=== PATIENT | male | born 1955 | race Caucasian/White ===

== ENCOUNTER 2021-07-02 14:59 | Emergency (ER) | payer OTHER, SELFPAY ==
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
[2021-07-02 15:19] VITALS: BP 154/71; PULSE 74; RESP 16; TEMP 36.6; O2SAT 98; BMI 28.7
[2021-07-02] MEDS: Acetaminophen 325 MG TABLET 975 MG PO (16:19)
[2021-07-02 16:49] VITALS: BP 145/81; PULSE 74; RESP 18; O2SAT 98
--- NOTE | 2021-07-02 17:10 | ED_ITS ---
HPI - Head Injury General Chief complaint: Head Injury Stated complaint: fell at hit the back of head Time Seen by Provider: 07/02/21 15:23 Source: patient and family Mode of arrival: ambulatory Limitations: no limitations History of Present Illness HPI Narrative: 66-year-old male with a history of high cholesterol here with reports of headache after a slip and fall 1 hour prior to arrival. Patient tells me he s lipped on this ice falling backwards hitting his head. There was no loss of consciousness. He reports a headache and some neck discomfort. He denies any vision changes, vomiting, dizziness, numbness, tingling, chest pain, abdominal pain or back pain. He is not on anticoagulation. Related Data Allergies Allergy/AdvReac Type Severity Reaction Status Date / Time celecoxib [From Celebrex] Allergy Mild HIVES Unverified 01/29/20 15:16 celebrex Allergy Unknown hives, Uncoded 01/23/18 00:00 oral swelling, throat tightness Review of Systems Review of Systems: Yes all other systems are reviewed and are negative Constitutional: Constitutional: Reports no additional constitutional complaints, Denies body ache(s), Denies chills, Denies fever(s), Reports headache(s) and Denies weakness Eyes: Eyes: Reports no additional eye complaints and Denies change in vision ENT: Reports system reviewed and no additional complaints, except as documented, Denies dizziness, Reports headache(s), Denies nasal congestion, Denies nasal discharge and Reports neck pain Cardiovascular: Cardiovascular: Reports no additional cardiovascular complaints, Denies chest pain, Denies leg edema and Denies dyspnea Respiratory: Respiratory: Reports no additional respiratory complaints, Denies cough and Denies dyspnea Gastrointestinal: Gastrointestinal: Reports no additional gastrointestinal complaints, Denies abdominal pain, Denies diarrhea, Denies nausea and Denies vomiting Genitourinary: Genitourinary: Denies urinary incontinence Musculoskeletal: Musculoskeletal: Reports no additional musculoskeletal complaints, Denies back pain, Denies arthralgias, Denies joint swelling, Reports neck pain, Denies numbness and Denies tingling Integumentary/Breasts: Skin/Breast: Reports system reviewed and no additional complaints, except as docu and Denies rash Neurologic: Reports system reviewed and no additional complaints, except as documented, Denies Abnormal speech present, Denies dizziness, Reports headache(s), Denies numbness, Denies tingling and Denies weakness [facility] Past Medical History Attestation statement: The following information was validated with the patient. Source: old records reviewed and nursing notes reviewed Social History Social History Advance Directives: No Advance Directives Information Provided: No Physical Exam Vital Signs: Vital Signs: Last Vital Signs Temp 97.8 F 07/02/21 15:19 Pulse 74 07/02/21 16:49 Resp 18 07/02/21 16:49 BP 145/81 H 07/02/21 16:49 Pulse Ox 98 07/02/21 16:49 BMI result Body Mass Index 28.7 Const: General: cooperative, healthy appearing, comfortable and no acute distress Orientation/consciousness: patient oriented x3 Limitations: no limitations HENMT: Head: Yes normal to inspection, No Daniels's sign and No raccoon eyes Ears: hearing grossly normal bilaterally and TM's normal bilaterally General nose exam: Normal external nose present Face and sinus: Yes normal facial exam Mouth: Normal oral and palatal mucosa present Throat: Yes posterior oropharynx normal, Yes tonsils normal and Yes uvula midline Eyes: General: appearance normal, both eyes and all related structures Pupils: Equal, round and reactive pupils present Neck: Other: cervical tenderness to midline with no step offs or deformities Neck: Yes normal visual inspection, Yes full ROM, Yes no lymphadenopathy and Yes no meningeal signs Chest: Chest palpation & inspection: normal inspection of the chest Resp: Effort & Inspection: normal respiratory effort Auscultation: clear to auscultation bilaterally Cardio: Rate: regular rate Rhythm: regular rhythm Peripheral pulses: Peripheral pulses 2+ throughout GI: Inspection: Yes normal to inspection Palpation (GI): Soft to palpation and nontender Auscultation: normal bowel sounds Back/Spine/Pelvis: Thoracic/Lumbar Spine: thoracic and lumbar spine normal to inspection Skin: General skin exam: no rashes or lesions noted Neuro: General: patient oriented x3, no meningeal signs, no focal motor deficits and normal sensation to monofilament Cranial nerves: Yes CN's II-XII intact bilaterally, Yes Equal, round and reactive pupils present, Yes Bilaterally intact EOM present, Yes Nystagmus not present, Yes Normal facial strength present and Yes Midline tongue present Cognition (Neuro): normal cognition Speech: No Abnormal speech present Gait exam (Neuro): Normal gait present Motor exam (neuro): 5/5 motor strength present throughout Sensory Exam: Normal double simultaneous stimulation for sensation Coordination: [id number] test normal, [id number] test normal and tandem gait normal Extrem: General: Yes normal to inspection Course Course Course Narrative: 66-year-old male with a history of high cholesterol here with a headache after mechanical fall with a head strike. No loss of conscious. Normal neurological exam. Patient is not on any anticoagulation. Will check CT head and neck due to reports of headache and neck pain. 1715-head and neck are negative. Likely head injury with cervical strain. Reviewed worrisome signs and symptoms of when to return to the emergency department. Comfortable discharge home. Reviewed head injury care [facility] - Head Injury Medical Records Attestation: I reviewed the patient's medical records. Lab Data Attestation: I reviewed the patient's lab results. Imaging Data ct head/neck: Attestation: I personally reviewed and interpreted this imaging study as follows: Radiologist's impression: FINDINGS: The head is turned slightly to the left. Bone alignment is otherwise normal. There is degenerative spondylosis and degenerative disc disease from C4-C5 to C6-C7. There is bilateral multilevel facet arthritis. Prevertebral soft tissues are normal. There is a 5 mm partially calcified pulmonary nodule at the left lung apex. CT/CT cervical spine wo con ?IMPRESSION: Degenerative changes. No fracture or dislocation seen. ? Fleischner guidelines were followed. Discharge Plan Discharge Clinical Impression: Closed head injury, Cervical muscle strain Patient Disposition: Home, Self-Care Instructions: Head Injury (ED), Cervical Strain (DC) Additional Instructions: Your CT scan is negative Motrin or tylenol for pain or fever Return for severe headache, vomiting, vision changes Referrals: ED Physician,Generic [Physician] - 1 week Interventions: ED Discharge Assessment Last Done: 07/02/21 16:48 Discharge Date/Time: 07/02/21 16:50
== END 2021-07-02 16:50 | disposition home or self-care (01) ==
PROVIDERS: Emergency Provider Internal Medicine; PCP Hospitalist
DX: S09.90XA Unspecified injury of head, initial encounter (principal); S16.1XXA Strain of muscle, fascia and tendon at neck level, initial encounter; W00.0XXA Fall on same level due to ice and snow, initial encounter; Y93.01 Activity, walking, marching and hiking; Y92.014 Private driveway to single-family (private) house as the place of occurrence of the external cause; Y99.9 Unspecified external cause status
CPT/HCPCS: 70450; 72125; 99284